=== PATIENT | male | born 1975 | race African-American/Black ===

== ENCOUNTER 2021-03-08 02:25 | Inpatient (IN) | payer MEDICAID, OTHER ==
[2021-03-08] VITALS (52 sets, daily range): BP systolic 76–144; BP diastolic 45–77
[~2021-03-08] VITALS: Ht 175.3 cm; Wt 83.9 kg
[2021-03-08] MEDS ORDERED: SODIUM CHLORIDE 0.9% 1,000 ML IV ONE (02:45)
[2021-03-08] MEDS ORDERED: MIDODRINE HCL 5MG TABLET PO SCH (03:00)
[2021-03-08 03:15] LABS: HEMATOCRIT. 23.8 % (42.0-52.0); HEMOGLOBIN. 7.3 g/dL (14.0-18.0); MEAN CORPUSCULAR HEMOGLOBIN 29.2 pg (28.0-32.0); MEAN CORPUSCULAR VOLUME 95.5 fL (80.0-94.0); MEAN PLATELET VOLUME 7.4 fl (7.4-10.4); PLATELET 445 x1000/uL (130-400); RED BLOOD CELL COUNT 2.49 mill/uL (4.7-6.1); RED CELL DISTRIBUTION WIDTH 26.1 % (11.6-14.6)
[2021-03-08 03:17] LABS: CHLORIDE 101 mEq/L (98-107)
[2021-03-08] MEDS ORDERED: SODIUM CHLORIDE 0.9% 1000ML BAG (SEPSIS BOLUS) IV ONE (03:45)
[2021-03-08] MEDS ORDERED: VANCOMYCIN 1 G PREMIX 200 ML IV SCH (03:45)
[2021-03-08] MEDS ORDERED: PIPERACILLIN/TAZOBACTAM 3.375GM/50ML PREMIX IV ONE (03:45)
[2021-03-08 04:35] LABS: PLATELET ESTIMATE NORMAL
[2021-03-08] MEDS ORDERED: PANTOPRAZOLE SODIUM 40 MG/VIAL IV ONE (04:45)
[2021-03-08] MEDS ORDERED: ASCO500C15 MT (06:51)
[2021-03-08] MEDS ORDERED: CHOL4PAC5 MT (06:54)
[2021-03-08] MEDS ORDERED: LACT10SO6 MT (06:54)
[2021-03-08] MEDS ORDERED: MIDO5TAB4 MT (06:54)
[2021-03-08] MEDS ORDERED: SEVE800T8 MT (06:54)
[2021-03-08] MEDS ORDERED: RIFA550T PO (06:54)
[2021-03-08] MEDS ORDERED: TRAM100T40 (06:54)
[2021-03-08] MEDS ORDERED: ACETAMINOPHEN 325MG TABLET PO PRN (07:15)
[2021-03-08] MEDS ORDERED: GUAIFENESIN 200MG/10ML SUGAR FREE UDC PO PRN (07:15)
[2021-03-08] MEDS ORDERED: MAGNESIUM/ALUMINUM HYDROXIDE/SIMETHICONE 30ML UDC PO PRN (07:15)
[2021-03-08] MEDS ORDERED: IPRATROPIUM/ALBUTEROL 0.5-3(2.5)MG/3ML NEB NEB PRN (07:15)
[2021-03-08] MEDS ORDERED: CLONIDINE 0.1MG TABLET PO PRN (07:15)
[2021-03-08] MEDS ORDERED: PIPERACILLIN/TAZ 3.375G PREMIX 50 ML IV SCH (07:15)
[2021-03-08] MEDS ORDERED: ONDANSETRON HCL 4MG/2ML INJ IV PRN (07:15)
[2021-03-08] MEDS ORDERED: DOCUSATE SODIUM 100MG CAPSULE PO PRN (07:15)
[2021-03-08] MEDS: DEXT 5%/LACTATED RINGERS 1,000 ML IV SCH ×3 (07:45→23:19)
[2021-03-08 08:07] LABS: HEMATOCRIT. 28.1 % (42.0-52.0); HEMOGLOBIN. 9.1 g/dL (14.0-18.0); MEAN CORPUSCULAR HEMOGLOBIN 28.5 pg (28.0-32.0); MEAN CORPUSCULAR VOLUME 88.2 fL (80.0-94.0); MEAN PLATELET VOLUME 6.7 fl (7.4-10.4); PLATELET 326 x1000/uL (130-400); RED BLOOD CELL COUNT 3.19 mill/uL (4.7-6.1)
[2021-03-08 08:16] LABS: CHLORIDE 103 mEq/L (98-107)
[2021-03-08 08:23] LABS: TOTAL IRON BINDING CAPACITY 172 ug/dL (250-450)
[2021-03-08 08:25] LABS: T4 FREE 1.55 ng/dL (0.76-1.46)
[2021-03-08 08:40] LABS: FOLIC ACID (FOLATE) SERUM >20 ng/mL ng/mL (>5.38)
[2021-03-08] MEDS ORDERED: VANCOMYCIN 500 MG PREMIX 100 ML IV NR (09:00)
[2021-03-08 09:05] LABS: VITAMIN B12 SERUM > 2000.0 pg/mL (211-911)
[2021-03-08 09:23] LABS: PLATELET ESTIMATE NORMAL
[2021-03-08] MEDS: PANTOPRAZOLE SODIUM 40 MG/VIAL IV SCH (10:09)
[2021-03-08] MEDS ORDERED: PIPERACILLIN/TAZOBACTAM 3.375 G in DEXT 5% WATER 100 ML IV SCH (12:00)
[2021-03-08 13:08] LABS: PHOSPHORUS 3.5 mg/dL (2.5-4.9)
[2021-03-08] MEDS: KETOROLAC 15MG/ML VIAL IV PRN (15:45)
[2021-03-08 17:24] LABS: CREATINE KINASE MB FRACTION 1.2 ng/mL (0.5-3.6)
[2021-03-08] MEDS: PIPERACILLIN/TAZOBACTAM 2.25 G in DEXTROSE 5% WATER 50 ML IV SCH ×2 (18:00→23:19)
[2021-03-08] MEDS: NOREPINEPHRINE 8 MG in DEXT 5% WATER 242 ML IV PRN (22:44)
[2021-03-09] VITALS (78 sets, daily range): BP systolic 76–156; BP diastolic 38–101
[2021-03-09 00:16] LABS: CREATINE KINASE 29 IU/L (39-308)
[2021-03-09 00:17] LABS: CREATINE KINASE MB FRACTION < 1.0 ng/mL (0.5-3.6)
[2021-03-09] MEDS: KETOROLAC 15MG/ML VIAL IV PRN ×2 (05:01→15:15)
[2021-03-09] MEDS: PIPERACILLIN/TAZOBACTAM 2.25 G in DEXTROSE 5% WATER 50 ML IV SCH ×4 (05:44→23:26)
[2021-03-09 07:50] LABS: HEMATOCRIT. 25.5 % (42.0-52.0); HEMOGLOBIN. 8.3 g/dL (14.0-18.0); MEAN CORPUSCULAR HEMOGLOBIN 28.5 pg (28.0-32.0); MEAN CORPUSCULAR VOLUME 87.1 fL (80.0-94.0); MEAN PLATELET VOLUME 6.8 fl (7.4-10.4); PLATELET 325 x1000/uL (130-400); RED BLOOD CELL COUNT 2.93 mill/uL (4.7-6.1); RED CELL DISTRIBUTION WIDTH 22.4 % (11.6-14.6)
[2021-03-09 08:01] LABS: CHLORIDE 106 mEq/L (98-107)
[2021-03-09 08:07] LABS: PHOSPHORUS 2.2 mg/dL (2.5-4.9)
[2021-03-09] MEDS: DEXT 5%/LACTATED RINGERS 1,000 ML IV SCH ×2 (08:08→17:19)
[2021-03-09] MEDS ORDERED: EPOETIN ALFA-EPBX 4,000 UNIT/ML VIAL SUBCUT ONE (10:00)
[2021-03-09 10:07] LABS: PLATELET ESTIMATE NORMAL
[2021-03-09] MEDS: PANTOPRAZOLE SODIUM 40 MG/VIAL IV SCH (10:08)
[2021-03-09] MEDS ORDERED: EPOETIN ALFA-EPBX 10,000 UNIT/ML VIAL SUBCUT ONE (21:00)
[2021-03-10] VITALS (112 sets, daily range): BP systolic 41–146; BP diastolic 18–97
[2021-03-10] MEDS: DEXT 5%/LACTATED RINGERS 1,000 ML IV SCH ×2 (03:17→08:38)
[2021-03-10] MEDS: KETOROLAC 15MG/ML VIAL IV PRN ×2 (04:55→11:30)
[2021-03-10 05:59] LABS: BASOPHILS % 0.5 % (0.0-2.0); EOSINOPHILS % 3.1 % (0.0-5.0); HEMOGLOBIN. 7.8 g/dL (14.0-18.0); LYMPHOCYTES % 9.6 % (20.0-50.0); MEAN CORPUSCULAR HEMOGLOBIN 28.3 pg (28.0-32.0); MEAN CORPUSCULAR VOLUME 87.4 fL (80.0-94.0); MEAN PLATELET VOLUME 7.2 fl (7.4-10.4); MONOCYTES % 3.9 % (2.0-8.0); NEUTROPHILS % 82.9 % (40.0-76.0); PLATELET 225 x1000/uL (130-400); RED BLOOD CELL COUNT 2.74 mill/uL (4.7-6.1); RED CELL DISTRIBUTION WIDTH 22.2 % (11.6-14.6)
[2021-03-10] MEDS: PIPERACILLIN/TAZOBACTAM 2.25 G in DEXTROSE 5% WATER 50 ML IV SCH ×3 (05:59→17:48)
[2021-03-10] MEDS ORDERED: EPINEPHRINE 0.1MG/ML (1:10,000) 10ML SYR ONE (07:52)
[2021-03-10] MEDS ORDERED: CALCIUM CHLORIDE 1GM/10ML SYR IV ONE (07:52)
[2021-03-10] MEDS ORDERED: ETOMIDATE 2MG/ML 10ML VIAL IV ONE (07:52)
[2021-03-10] MEDS ORDERED: SODIUM BICARBONATE 8.4% 1 MEQ/ML 50ML SYR IV ONE ×2 (07:52→14:08)
[2021-03-10] MEDS ORDERED: SUCCINYLCHOLINE CHLORIDE 200MG/10ML IV ONE (07:52)
[2021-03-10] MEDS ORDERED: NITROGLYCERIN OINT 1GM/INCH UDPKT TD NR (08:15)
[2021-03-10] MEDS: NOREPINEPHRINE 8 MG in DEXT 5% WATER 242 ML IV PRN ×2 (08:33→16:34)
[2021-03-10] MEDS: PANTOPRAZOLE SODIUM 40 MG/VIAL IV SCH (08:37)
[2021-03-10] MEDS: ACETAMINOPHEN 325MG TABLET PO PRN ×2 (09:07→13:34)
[2021-03-10] MEDS: MIDODRINE HCL 5MG TABLET PO SCH ×3 (09:36→17:48)
[2021-03-10] MEDS ORDERED: PHENYLEPHRINE 100 MG in DEXT 5% WATER 240 ML IV PRN (12:30)
[2021-03-10 13:50] LABS: BG BASE EXCESS -18.3 mmol/L (-2.0-2.0); BG CARBOXYHEMOGLOBIN 0.3 % (0.5-1.5); BG DEOXYHEMOGLOBIN 4.1 % (0.0-5.0); BG FRACTION INSPIRED OXYGEN 40; BG METHEMOGLOBIN 0.4 % (0.0-1.5); BG OXYGEN SATURATION 95.9 % (92.0-98.5); BG OXYHEMOGLOBIN 95.2 % (94.0-97.0); BG PCO2 26.7 mmHg (35.0-45.0); BG PH 7.144 (7.350-7.450); BG PO2 105.6 mmHg (75.0-100.0); BG SAMPLE SITE LEFT BRACHIAL; BG TOTAL HEMOGLOBIN 6.4 g/dL (12.0-18.0); BG VENT MODE NASAL CANNULA
[2021-03-10] MEDS ORDERED: SODIUM BICARBONATE 8.4% 1 MEQ/ML 50ML SYR IV SCH (14:00)
[2021-03-10] MEDS ORDERED: LACTULOSE 20G/30ML UDC PO SCH (14:00)
[2021-03-10] MEDS ORDERED: PROPOFOL 10MG/ML 100ML 100 ML IV PRN (14:30)
[2021-03-10] MEDS ORDERED: SODIUM BICARBONATE 150 MEQ in DEXTROSE 5% WATER 1,000 ML IV SCH (15:30)
[2021-03-10 15:46] LABS: BG BASE EXCESS -20.1 mmol/L (-2.0-2.0); BG CARBOXYHEMOGLOBIN 0.3 % (0.5-1.5); BG DEOXYHEMOGLOBIN 0.3 % (0.0-5.0); BG HCO3 ACT 8.1 mmol/L (22.0-26.0); BG METHEMOGLOBIN 0.3 % (0.0-1.5); BG OXYGEN SATURATION 99.7 % (92.0-98.5); BG OXYHEMOGLOBIN 99.1 % (94.0-97.0); BG PCO2 27.7 mmHg (35.0-45.0); BG PH 7.083 (7.350-7.450); BG PO2 349.2 mmHg (75.0-100.0); BG SAMPLE SITE LEFT BRACHIAL; BG TOTAL HEMOGLOBIN 6.1 g/dL (12.0-18.0); BG VENT MODE VENT - AC
[2021-03-10] MEDS ORDERED: SODIUM BICARBONATE 8.4% 1 MEQ/ML 50ML SYR IV NR (16:00)
[2021-03-10] MEDS ORDERED: VASOPRESSIN 20 UNIT in SODIUM CHLORIDE 0.9% 99 ML IV PRN (16:15)
[2021-03-10] MEDS ORDERED: NOREPINEPHRINE 32 MG in DEXT 5% WATER 218 ML IV PRN (17:15)
[2021-03-10] MEDS ORDERED: VANCOMYCIN 500 MG PREMIX 100 ML IV SCH (17:30)
[2021-03-10] MEDS ORDERED: IPRATROPIUM/ALBUTEROL 0.5-3(2.5)MG/3ML NEB HHN SCH (18:00)
[2021-03-10 20:00] LABS: CHLORIDE 105 mEq/L (98-107)
== END 2021-03-10 19:52 | DRG 710 ==
LOC: ER 02:25 → CVICU 03:51 → EDBEDREQ 03:53 → EDBEDREQTM 03:53 → ENRESERV 05:00
PROVIDERS: ADMIT Internal Medicine; ATTEND Internal Medicine
PROC: 0QB10ZZ Excision of Sacrum, Open Approach (ICD-10-PCS; principal; 2021-03-08)
PROC: 02H633Z Insertion of Infusion Device into Right Atrium, Percutaneous Approach (ICD-10-PCS; 2021-03-08)
PROC: B548ZZA Ultrasonography of Superior Vena Cava, Guidance (ICD-10-PCS; 2021-03-08)
PROC: 30233N1 Transfusion of Nonautologous Red Blood Cells into Peripheral Vein, Percutaneous Approach (ICD-10-PCS; 2021-03-08)
PROC: 5A1935Z Respiratory Ventilation, Less than 24 Consecutive Hours (ICD-10-PCS; 2021-03-10)
PROC: 5A12012 Performance of Cardiac Output, Single, Manual (ICD-10-PCS; 2021-03-10)
PROC: 0BH17EZ Insertion of Endotracheal Airway into Trachea, Via Natural or Artificial Opening (ICD-10-PCS; 2021-03-10)
DX: A41.9 Sepsis, unspecified organism (principal); N17.0 Acute kidney failure with tubular necrosis; R65.21 Severe sepsis with septic shock; E43 Unspecified severe protein-calorie malnutrition; G92 Toxic encephalopathy; L89.154 Pressure ulcer of sacral region, stage 4; K75.9 Inflammatory liver disease, unspecified; E11.22 Type 2 diabetes mellitus with diabetic chronic kidney disease; E11.51 Type 2 diabetes mellitus with diabetic peripheral angiopathy without gangrene; I10 Essential (primary) hypertension; L85.3 Xerosis cutis; E83.51 Hypocalcemia; S91.312A Laceration without foreign body, left foot, initial encounter; X58.XXXA Exposure to other specified factors, initial encounter; K80.00 Calculus of gallbladder with acute cholecystitis without obstruction; E87.2 Acidosis; E66.9 Obesity, unspecified; N18.6 End stage renal disease; F41.9 Anxiety disorder, unspecified; D63.8 Anemia in other chronic diseases classified elsewhere; I12.0 Hypertensive chronic kidney disease with stage 5 chronic kidney disease or end stage renal disease; Y99.8 Other external cause status; Z86.16 Personal history of COVID-19; Z86.73 Personal history of transient ischemic attack (TIA), and cerebral infarction without residual deficits; Z68.23 Body mass index [BMI] 23.0-23.9, adult; Y93.89 Activity, other specified; Y92.89 Other specified places as the place of occurrence of the external cause; Z68.27 Body mass index [BMI] 27.0-27.9, adult; Z99.2 Dependence on renal dialysis
CPT/HCPCS: 31500; 36415; 36600; 71045; 72195; 76700; 76770; 76937; 80048; 80053; 80202; 82010; 82140; 82270; 82375; 82550; 82553; 82607; 82746; 82805; 82962; 83540; 83550; 83605; 83735; 83880; 84100; 84134; 84145; 84439; 84443; 84484; 85025; 85384; 86850; 86900; 86920; 87070; 87077; 87186; 93005; 93306; 93923; 93970; 94002; 94640; 99291; C1725; C1892; C9113; J0330; J0885; J1885; J2370; J2543; J2704; J3370; J3490; J7030; J7060; J7070; J7121; P9016